=== PATIENT | female | born 1995 | race Two or more races ===

== ENCOUNTER 2019-02-08 01:57 | Emergency (ER) | payer SELFPAY ==
[~2019-02-08] VITALS: Ht 149.9 cm; Wt 52.2 kg
--- NOTE | 2019-02-08 02:23 | NUR ---
BIBS FOR EVALUATION OF DRY COUGH FOR THE PAST 1.5 WK. NO SOB. AFEBRILE.
[2019-02-08 02:46] VITALS: BP 127/75
--- NOTE | 2019-02-08 02:46 | NUR ---
Patient discharged to home in stable condition. Rx and Written and verbal after care instructions given. Patient verbalizes understanding of instruction.
== END 2019-02-08 02:46 | disposition home or self-care (01) ==
LOC: ER 01:57
DX: J40 Bronchitis, not specified as acute or chronic (principal); Z88.8 Allergy status to other drugs, medicaments and biological substances